=== PATIENT | female | born 1980 | race Caucasian/White ===

== ENCOUNTER 2017-07-04 05:19 | Day surgery (SDC) | payer OTHER ==
[~2017-07-04] VITALS: Ht 154.9 cm; Wt 108.9 kg
--- NOTE | ~2017-07-04 | O ---
[facility] [place] [address] OPERATIVE REPORT Name: GARCÍA OSPINA Room #: DEP [facility] [place]#: [id number] Admission: 07/04/17 Attend Phys: Dharmesh Valdez MD Discharge: 07/04/17 Date of : 76 Report #: [id number] THIS REPORT FOR: //name// CC: Eve Valdez DATE OF SERVICE: 07/04/2017 PATIENT OF: Dharmesh Valdez MD and Dr. Eve Zaidi. PREOPERATIVE DIAGNOSES: Cholelithiasis, cholecystitis and biliary colic. POSTOPERATIVE DIAGNOSES: Cholelithiasis, cholecystitis and biliary colic. PROCEDURE: Laparoscopic cholecystectomy. SURGEON: Dharmesh Valdez MD OCCUPATIONAL HEALTH NURSE MANAGER: Debi Cummins RN ANESTHESIA: General. DESCRIPTION OF PROCEDURE: The patient was brought to the operating room and placed on operative table in the supine position. Sequential compression devices were in place for DVT prophylaxis. She was given appropriate preoperative dose of Mefoxin. The patient underwent a general anesthesia and the abdomen was then prepped and draped in a sterile fashion. Skin and subcutaneous tissue around the umbilicus was then infiltrated with 0.5% Marcaine. Infraumbilical skin incision was then performed using #11 scalpel blade. Hemostasis obtained using electrocautery. Dissection was carried down through the subcutaneous tissue to the fascia, which was then grasped between two Cheng clamps and incised with the curved Yarbrough scissors. The peritoneum was entered and a pursestring suture of 0 Vicryl was then placed in the fascia. A 12 mm disposable Leonard port was then inserted through the opening and held into place with the balloon port and the pursestring suture. Pneumoperitoneum was obtained to a level of 10-15 mmHg. Laparoscope was inserted through this port and exploration was performed, which revealed a thickened, dilated, acutely and subacutely inflamed gallbladder. There were some adhesions around the liver and the gallbladder. There were no other intra-abdominal abnormalities. Two lateral 5 mm Surgiport as well as an upper midline 11 mm Surgiport were all inserted under direct visualization after infiltration with 0.5% Marcaine. An attempt was made to grasp the gallbladder and retract it superiorly, but it was so subacutely and acutely inflamed and thickened could not get a good grasp on the gallbladder. I decided to decompress the gallbladder using the Topel needle. Using 60 mL syringe, approximately 60 mL of white bile was aspirated. [address] [address] OPERATIVE REPORT Name: GARCÍA OSPINA Zoraida [id number] Admission: 07/04/17 Attend Phys: Dharmesh Valdez MD Discharge: 07/04/17 Date of : 76 Report #: [id number] This then allowed the ability to grasp the gallbladder and retract it superiorly. Adhesions around the gallbladder and liver were carefully dissected free using the hook electrocautery. The cystic duct and artery were then carefully dissected free. Cystic artery was doubly clipped on each side and divided with the scissors. The cystic duct was identified down to the cystic common bile duct junction. The cystic duct was then triply clipped on the common bile duct side and doubly clipped on the gallbladder side and divided with scissors. The gallbladder was then dissected free from the bed using the hook electrocautery. The bed was noted to be acutely inflamed due to the gallbladder and meticulous hemostasis was obtained using electrocautery. The gallbladder was retracted superiorly and the bed inspected for hemostasis, which was obtained using electrocautery and the gallbladder was then transected and brought out through the periumbilical port and sent as specimen to pathology. Of note, there were numerous small stones within the gallbladder with a very thickened wall. There was a small web across the neck of the gallbladder further obstructing the cystic duct. The port was then returned to the abdomen. The area was then copiously irrigated with warm saline solution, which was suctioned free and hemostasis was checked and found to be intact. The ports were then all removed under direct visualization, hemostasis intact at each port site. Pneumoperitoneum was released and the periumbilical port was then also removed under direct visualization. Hemostasis intact at that port site as well. The periumbilical fascia was then closed using the 0 Vicryl pursestring suture. Skin was then closed using interrupted vertical mattress 5-0 nylon sutures and the wound was dressed with Band-Aids. The patient was then awakened from the general endotracheal anesthesia, extubated, and taken to the recovery room in good condition. Estimated blood loss was approximately 10 mL and the patient tolerated the procedure well. All sponge, lap and instrument counts were correct x 2. <ELECTRONICALLY SIGNED> By: Dharmesh Valdez MD 07/05/17 1403 [id number] Dharmesh Valdez MD /nt
[~2017-07-04 05:19] MED LIST: ARIPIPRAZOLE2 MG PO; CELEXA20 MG PO; NECON1 EAC4 PO; SYNTHROID200 MCG PO; ZYRTEC10 M5 PO
[2017-07-04 06:57] VITALS: BP 134/82
[2017-07-04] MEDS ORDERED: HYDROCODONE-AP1 EAC6 PO (10:19)
[2017-07-04 11:55] VITALS: BP 134/82
== END 2017-07-04 13:15 | disposition home or self-care (01) ==
LOC: TBA 05:19 → OR 05:19
DX: K80.60 Calculus of gallbladder and bile duct with cholecystitis, unspecified, without obstruction (principal); E03.9 Hypothyroidism, unspecified; J45.909 Unspecified asthma, uncomplicated; K21.9 Gastro-esophageal reflux disease without esophagitis; F41.9 Anxiety disorder, unspecified; F32.9 Major depressive disorder, single episode, unspecified; Z90.49 Acquired absence of other specified parts of digestive tract; Z98.890 Other specified postprocedural states; Z88.0 Allergy status to penicillin; Z79.899 Other long term (current) drug therapy; Z79.891 Long term (current) use of opiate analgesic
CPT/HCPCS: 50010; 50101; 50411; 50555; 50558; 51474; 51489; 52266; 53314; 56462; 56524; 56528; 56970; 62110; 62900; 70005